=== PATIENT | male | born 1965 | race Caucasian/White ===

== ENCOUNTER 2020-06-12 18:38 | Inpatient (IN) | payer MEDICARE, MEDICAID ==
[~2020-06-12] VITALS: Ht 193 cm; Wt 104.4 kg
[2020-06-12 21:15] VITALS: BP 141/94
[2020-06-12 22:00] VITALS: BP 141/94
[2020-06-12] MEDS ORDERED: PLAVIX75 M1 PO (22:35)
[2020-06-12] MEDS ORDERED: DEPAKOTE DR500 MG PO (22:35)
[2020-06-12] MEDS ORDERED: NEURONTIN300 MG PO ×2 (22:36→22:37)
[2020-06-12] MEDS ORDERED: PROPECIA1 MG PO (22:36)
[2020-06-12] MEDS ORDERED: MUCINEX ER600 MG PO (22:38)
[2020-06-12] MEDS ORDERED: IBU800 M1 PO (22:40)
[2020-06-12] MEDS ORDERED: CLARITIN10 MG PO (22:40)
[2020-06-12] MEDS ORDERED: MIRALAX POWDER17 G1 PO (22:41)
[2020-06-12] MEDS ORDERED: FLOMAX0.4 MG PO (22:41)
[2020-06-12] MEDS ORDERED: ZANAFLEX4 M1 PO (22:42)
[2020-06-12] MEDS ORDERED: TRINTELLIX20 MG PO (22:42)
[2020-06-13 06:47] LABS: BASO % 0.6 % (0.0-1.0); HEMATOCRIT 44.5 % (42.0-52.0); LYMPH # 1.9 10*3/uL (1.3-4.4); LYMPH % 38.8 % (27.0-41.0); MEAN CELL VOLUME 96.1 fl (80.0-94.0); MEAN CORPUSCULAR HGB CONC 33.3 g/dl (33.0-37.0); MEAN PLATELET VOLUME 9.8 fl (9.6-12.3); MONO # 0.5 10*3/uL (0.1-1.0); MONO % 9.1 % (3.0-9.0); NEUT # 2.5 10*3/uL (2.3-7.9); NEUT % 51.1 % (47.0-73.0); PLATELET COUNT AUTOMATED 150 10*3/uL (130-400); RED BLOOD COUNT 4.63 10*6/uL (4.50-5.90); RED CELL DISTRI WIDTH 12.7 % (0-14.5); WHITE BLOOD COUNT 4.9 10*3/uL (4.8-10.8)
[2020-06-13 07:03] LABS: ALKALINE PHOSPHATASE 42 U/L (45-117); BUN 18 mg/dl (7-24); CHLORIDE 109 mmol/L (98-107); CHOLESTEROL 163 mg/dL (<200); CREATININE 0.82 mg/dL (0.70-1.30); HDL CHOLESTEROL 46 mg/dl (40-60); LDL CHOLESTEROL 101 mg/dL (9-159); POTASSIUM 4.2 mmol/L (3.5-5.1); SGOT/AST 48 IU/L (3-35); SGPT/ALT 69 U/L (12-78); SODIUM 142 mmol/L (136-145); TOTAL PROTEIN 6.2 gm/dL (6.4-8.2); TRIGLYCERIDES 82 mg/dl (<150); VLDL CHOLESTEROL 16 mg/dL (6-40)
[2020-06-13 07:28] LABS: VITAMIN D, 25-HYDROXY 22.8 ng/mL (30-100)
[2020-06-13 07:45] VITALS: BP 118/83
[2020-06-13 19:13] VITALS: BP 120/80
[2020-06-14 07:35] VITALS: BP 129/88
[2020-06-14 19:09] VITALS: BP 126/85
[2020-06-15 07:14] VITALS: BP 129/80
[2020-06-15 19:50] VITALS: BP 113/89
[2020-06-16 07:26] VITALS: BP 111/68
[2020-06-16 19:41] VITALS: BP 111/68
[2020-06-17 07:54] VITALS: BP 136/84
[2020-06-17 19:45] VITALS: BP 113/86
[2020-06-18 07:20] VITALS: BP 118/80
[2020-06-18 20:00] VITALS: BP 112/84
[2020-06-19 07:15] VITALS: BP 109/71
[2020-06-19] MEDS ORDERED: MIRTAZAPINE15 M2 PO (08:43)
[2020-06-19] MEDS ORDERED: VITAMIN D350 MC2 PO (08:45)
== END 2020-06-19 14:52 | DRG 885 ==
LOC: 3N 18:38
PROVIDERS: ADMIT Psychiatry & Neurology Psychiatry; ATTEND Psychiatry & Neurology Psychiatry
DX: F33.2 Major depressive disorder, recurrent severe without psychotic features (principal); R45.851 Suicidal ideations; E44.0 Moderate protein-calorie malnutrition; E87.8 Other disorders of electrolyte and fluid balance, not elsewhere classified; E55.9 Vitamin D deficiency, unspecified; G62.9 Polyneuropathy, unspecified; N40.0 Benign prostatic hyperplasia without lower urinary tract symptoms; Z87.891 Personal history of nicotine dependence; Z79.899 Other long term (current) drug therapy; Z68.28 Body mass index [BMI] 28.0-28.9, adult